=== PATIENT | female | born 1990 | race Caucasian/White ===

== ENCOUNTER 2017-12-05 18:25 | Inpatient (IN) | payer MEDICAID, SELFPAY ==
--- NOTE | 2017-12-05 18:37 | PCM.HP.OB ---
- Problem List (1) Short interval between pregnancies affecting , antepartum Status: Acute (2) History of depression Status: Acute History Date of Admission: 12/05/17 Final OSIEL: 12/05/17 Final OSIEL Source: LMP Gestational age: 40 Weeks and 0 Days History of this : 27 year old at 40w0d by LMP, confirmed by U/S. Presented to office today with contractions every 5minutes and cervical dilation of 4cm. Advised to leave for dinner, walk and return when contractions were more uncomfortable or call back in 2hrs. Patient presented on unit with increased pressure and pain with contractions. Denies leakage of fluid, vaginal bleeding, headache, shortness of breath, or chest pain. Allergies No Known Allergies Allergy (Verified 07/11/16 02:28) Smoking Status: Never smoker Alcohol: None Drug Use: none Number of Fetus(es): 1 Review of Systems Constitutional: Denies: Chills, Fever, Weight Change Cardiovascular: Denies: Chest Pain, Palpitations Respiratory: Denies: Cough, Shortness of breath at rest, Sputum production Physical Exam Vitals: Labs: GBS negative Rubella Immune RPR negative HBsAG negative HIV negative B positive, antibody screen negative GC/CT negative FHT: 125, moderate variability, accels, no decels, Category 1 TOCO: every 5 minutes, lasting 60 seconds, moderate to palpation. General: Alert, Oriented x3, No apparent distress Cardiovascular: Regular rate, Regular Rhythm, No murmurs Lungs: Clear to auscultation, No rhonchi, No wheeze Abdomen: Gravid Extremities:: No edema, Deep tendon reflexes - +2/4 bilateral patellar Presentation: Cephalic Cervix Dilation (cm): 5 Station: -1 Effacement (%): 70 Assessment/Plan Active and Suspected Problems Short interval between pregnancies affecting , antepartum (Acute) History of depression (Acute) A: Active Labor Category 1 FHT P: 1) Admit L&D, routine orders. Insert IV 2) Planning epidural for pain management 3) notified and updated on patient status. Anna Wesley CNM
[2017-12-05] MEDS: Lactated Ringers 1,000 ML 50 ML IV (18:40)
[2017-12-05 19:09] VITALS: BMI 34.9
[2017-12-05 19:16] LABS: Hemoglobin 11.1 g/dl (12.0-15.0); Mean Corp Hgb Conc 31.7 g/gl (32-36); Mean Corpuscular Hgb 24.8 pg (27.0-32.0); Mean Corpuscular Volume 78.1 fL (81-99); Mean Platelet Vol. 9.6 fl (6.2-12.0); Platelet Count 251 K/mm3 (150-450); RBC Distribution Width CV 20.1 % (11.6-14.6); RBC Distribution Width SD 57.8 fl (35.1-43.9); Red Blood Count 4.48 M/mm3 (4.2-5.4); Scan Indicated on CBC? Y/N YES- FLAGS NOTED; White Blood Count 11.5 K/mm3 (4.4-11.0)
[2017-12-05] MEDS: Mag Hydrox/Al Hydrox/Simeth 30 ML UDC PO ×2 (20:30→23:30)
--- NOTE | 2017-12-05 22:28 | PCM.PN.OB ---
Patient Problems: Active and Suspected Problems Short interval between pregnancies affecting , antepartum (Acute) History of depression (Acute) Subjective: Resting in bed with epidural on right side. at bedside. Objective: FHT: 125, moderate variability, accels, no decels, Category 1 TOCO: every 4 min, strong Cervix 8.5cm/90%/+1 asynclitic - Physical Exam Weight: 191 lb 5.78 oz Body Mass Index (BMI) 34.9 Laboratory Tests Past 24 Hrs 12/05/17 12/05/17 18:40 18:40 WBC 11.5 H RBC 4.48 Hgb 11.1 L Hct 35.0 L MCV 78.1 L MCH 24.8 L MCHC 31.7 L RDW 20.1 H RDW Differential 57.8 H Plt Count 251 MPV 9.6 Differential Comment 1+ ANISO Blood Type B POSITIVE Antibody Screen NEGATIVE Medical Necessity - Tobacco Use Smoking Status: Never smoker Assessment/Plan Active and Suspected Problems Short interval between pregnancies affecting , antepartum (Acute) History of depression (Acute) A: Active Labor, progressing Category 1 FHT P: 1) Continue with expectant management 2) Positional changes.
[2017-12-06] MEDS: Oxytocin 30 units/NS 500 ml 30 UNITS/500 ML IV.SOLN 334 UNITS IV (00:10)
[2017-12-06] MEDS: Oxytocin 30 units/NS 500 ml 30 UNITS/500 ML IV.SOLN 167 UNITS IV (00:40)
--- NOTE | 2017-12-06 00:53 | PCM.OB.VAG ---
- Problem List (1) Short interval between pregnancies affecting , antepartum Status: Acute (2) History of depression Status: Acute Vaginal Delivery Maternal Presentation: Active Labor Amniotic Membrane Rupture Type: Artificial Amniotic Fluid Description: Clear Final OSIEL: 12/05/17 Gestational age: 40 Weeks and 1 Days Date of Procedure: 12/06/17 Pre-Operative Diagnosis: Active Labor Post-Operative Diagnosis: Surgery/ Procedure Performed: Spontaneous Vaginal Delivery Type of Anesthesia: Epidural Description of Procedure: Progressed to complete with urge to push. of viable male infant over 1st degree perineal laceration. APGARS 9,9. Infant delivered without complications and placed on maternal abdomen. Spontaneous cry, mouth and nares suctioned for secretions. Pitocin started IVPB for active 3rd stage management. Placenta delivered with maternal effort, 3 vessel cord, intact via henny. Perineum inspected and revealed 1st degree perineal laceration. Repaired with 3.0 vicryl under epidural analgesia. Fundus firm, hemostasis achieved. Planning to breastfeed. Mom and baby stable. Family bonding well. notified. Presentation: Vertex Placental Delivery Description: Spontaneous Placenta Disposition: [facility] Cord Vessel Description: 3 Vessels Cord Entanglement: None Infant A gender: Male (1 minute): 9 (5 minute): 9 Episiotomy Description: None Laceration: Perineal Extension/lac, 1st degree Medications given after delivery: IV Pitocin
--- NOTE | 2017-12-06 00:59 | DCINST_ITS ---
Discharge Diet: No Restrictions Discharge Activity: Return to Normal Activity, May not drive while taking narcotic pain medications., May Shower May resume sexual activity in: 4-6 weeks Weight Bearing Status: Weight bearing as tolerated Call your doctor if your incision/area has: Continuous Slow Oozing, Sudden Increased Bleeding, Increased Pain/ Swelling, Increased Redness, Foul Smelling Discharge Call your doctor if you observe: Fever of 101 or Higher, Coldness, Increased Pain, Numbness or Tingling, Change in Color, Inability to urinate, Inability to have a bowel movement, Using more than one pad per hour, Shortness of breath, Dizziness, Fainting spells, Swelling in the ankles, Chest pain, Increased palpitations (irregular heartbeat), Calf discomfort, Uncontrolled pain Additional Instructions: If you experience any of the following, contact your healthcare provider. * Bleeding that soaks a pad every hour for 2 hours * Fever 100.4 or higher * Unrelieved incision or abdominal pain * Swelling, redness, discharge or bleeding from your incision or episiotomy site * Your incision begins to separate * Problems urinating (including inability to urinate or burning while urinating) . * Visual changes * Severe headache * Flu-like symptoms * Pain or redness in one of both of your breasts * Pain, warmth, tenderness or swelling in your legs, especially the calf area * Frequent nausea and vomiting * Symptoms of depression or anxiety If you experience any of the following, call 911 or go to the nearest Emergency Room. * Chest pain * Problems breathing * Seizure activity * Partial or complete paralysis of a body part, slurred speech, weakness or drooping of the face, or a sudden inability to walk or hold your balance Allergies/Adverse Reactions: Allergies No Known Allergies Allergy (Verified 07/11/16 02:28) Medications to take at Discharge Pnv No.122/Iron/Folic Acid [ Multi Tablet] 1 each PO DAILY 12/31/15 Ranitidine [Zantac] 150 mg PO BID 06/26/16 Please Follow Up With: Anna Wesley CNM When: Call to make an appointment with your doctor in 6 weeks. If you had elevated Blood Pressure or 4th degree laceration you will need to be seen in 2 weeks. Primary Care Physician: Care Physician,No Primary [Primary Care Provider] -
[2017-12-06] MEDS: Acetaminophen 500 MG Tablet 1000 MG PO ×2 (02:54→14:12)
[2017-12-06 04:20] VITALS: BP 107/60; PULSE 80; RESP 16; TEMP 36.7; O2SAT 98
--- NOTE | 2017-12-06 08:15 | NURSING ---
Steady on feet. Tolerating oral intake. Void x1 300ml.
[2017-12-06] MEDS: Naproxen 250 MG Tablet PO ×2 (08:35→19:36)
[2017-12-06 13:53] VITALS: BP 127/58; PULSE 80; RESP 17; TEMP 36.8; O2SAT 99
[2017-12-06 16:00] VITALS: PULSE 78; RESP 16; TEMP 36.8; O2SAT 100
[2017-12-06 19:29] VITALS: BP 128/63; PULSE 84; RESP 16; TEMP 36.8; O2SAT 98
[2017-12-07 02:40] VITALS: BP 115/56; PULSE 90; RESP 16; TEMP 36.2; O2SAT 96
--- NOTE | 2017-12-07 07:07 | PN.OBGYN_ITS ---
Patient Problems: Active and Suspected Problems Short interval between pregnancies affecting , antepartum (Acute) History of depression (Acute) Subjective: pt seen at bedside, doing well. pt reports good pain control. lochia mild. - Physical Exam General: Alert, Oriented x3 Abdomen: Soft, Non Tender, Non-Distended, - - fundus firm Extremities: No Calf Tenderness Vital Signs Temp Pulse Resp BP Pulse Ox 97.2 F L 90 16 115/56 L 96 12/07/17 02:40 12/07/17 02:40 12/07/17 02:40 12/07/17 02:40 12/07/17 02:40 Oxygen Delivery Method Room Air Weight: 86.8 kg Body Mass Index (BMI) 34.9 Intake and Output for Last 24 Hours 12/05/17 12/06/17 12/07/17 23:59 23:59 23:59 Intake Total 1999 / 1999 Output Total 400 / 400 1800 / 1800 Balance 1600 / 1600 -1800 / -1800 Medical Necessity - Tobacco Use Smoking Status: Never smoker Assessment/Plan Active and Suspected Problems Short interval between pregnancies affecting , antepartum (Acute) History of depression (Acute) PPD#1, doing well routine care pain mgmt [facility]
[2017-12-07 10:00] VITALS: BP 114/75; PULSE 86; RESP 16; TEMP 36.6
--- NOTE | 2017-12-07 15:01 | NURSING ---
1430 Discharged to home in wheelchair to car with . States she wants to go home today and feels comfortable caring for herself and her baby.
== END 2017-12-07 14:30 | disposition home or self-care (01) | DRG 373 ==
LOC: WPOUT 18:28 → WP 18:28
PROVIDERS: Admitting Provider Obstetrics & Gynecology; Visit Provider Obstetrics & Gynecology
DX: O70.0 First degree perineal laceration during delivery (principal); Z37.0 Single live birth; Z3A.40 40 weeks gestation of pregnancy
CPT/HCPCS: 59025; 59050; 85027; 86850; 86900; 99218; J7120; G0378

== ENCOUNTER 2019-12-11 00:35 | Outpatient (CLI) | payer MEDICAID, SELFPAY ==
[2019-12-11 00:53] VITALS: BMI 34.7
[2019-12-11 01:00] VITALS: BP 117/60; PULSE 75; PULSE 91; TEMP 36.6; O2SAT 96; O2SAT 98
[2019-12-11 03:04] VITALS: BP 111/66; PULSE 67; O2SAT 98
--- NOTE | 2019-12-11 10:57 | OB.TRI.PN ---
Progress Notes Date of Service: 12/11/19 Progress Note: 29 year old female. at 39w4d with complaint of contractions. Mild discomfort but presented due to contractions closer together. Denied any vaginal bleeding, leakage of fluid, or other complaints. O: FHR 125, moderate variability, accels, Category 1 Reactive TOCO: contractions 2-5 minutes apart, mild Cervical 3.5 cm to 4 cm after 2 hr. Limited cervical change and mild contractions A: False Labor P: 1) Patient ok to go home at this time. Limited cervical change and comfortable. Reviewed possible early labor vs. false labor. Will call if contraction intensity increases 2) D/C home
== END 2019-12-11 03:30 | disposition home or self-care (01) ==
LOC: WPOUT 00:47 → WP 00:48
PROVIDERS: Referring Provider Advanced Practice Midwife; Visit Provider Advanced Practice Midwife
DX: O47.1 False labor at or after 37 completed weeks of gestation (principal); Z3A.39 39 weeks gestation of pregnancy
CPT/HCPCS: 59025; 59050; 99218; G0378

== ENCOUNTER 2019-12-11 12:10 | Inpatient (IN) | payer MEDICAID, SELFPAY ==
[2019-12-11] VITALS (33 sets, daily range): BP systolic 72–141; BP diastolic 45–72; PULSE 58–104; TEMP 35.9–36.5; O2SAT 94–100; BMI 34.7; BMI 34.0
--- NOTE | 2019-12-11 12:17 | PCM.PN.OB ---
Subjective: 29 year old at 39w4d presents for contractions that increased over last couple hours and increased pain. Contractions every 2minutes. No leakage of fluid, vaginal bleeding. Baby is moving good. Had increased mucous and thinks she lost a mucous plug. course complicated by depression and iron deficiency anemia. Patient denies any cough, fever, or shortness of breath. Denies any contacts with COVID 19 positive individuals for her self or . - Physical Exam Vitals/I&O's: Vital Signs Temp Pulse BP Pulse Ox 97.4 F L 76 110/65 100 12/11/19 12:13 12/11/19 12:13 12/11/19 12:13 12/11/19 12:13 Weight: 185 lb 12.8 oz Body Mass Index (BMI) 34.0 General: Alert, Oriented x3, Cooperative HEENT: Atraumatic, Normocephalic Neck: Trachea Midline Lungs: Clear to auscultation, Normal air movement, No rhonchi, No wheeze Cardiovascular: Regular rate, Regular Rhythm, No murmurs Abdomen: Gravid Extremities: No edema Neurological: Deep Tendon Reflexes 2+/4 and Symmetrical Psych/Mental Status: Normal Affect, Appropriate Medical Necessity - Tobacco Use Smoking Status: Never smoker Assessment/Plan All Active Problems Short interval between pregnancies affecting , antepartum (Acute) History of depression (Acute) A: 29 year old at 39w4d in active labor Category 1 FHT P: 1)
--- NOTE | 2019-12-11 12:28 | PCM.HP.OB ---
- Problem List (1) Active labor at term Status: Acute (2) Depression affecting Status: Acute History Date of Admission: 12/05/17 Final OSIEL: 12/14/19 Final OSIEL Source: LMP Gestational age: 39 Weeks and 4 Days History of this : 29 year old at 39w4d presents for contractions that increased over last couple hours and increased pain. Contractions every 2minutes. No leakage of fluid, vaginal bleeding. Baby is moving good. Had increased mucous and thinks she lost a mucous plug. course complicated by depression and iron deficiency anemia. Patient denies any cough, fever, or shortness of breath. Denies any contacts with COVID 19 positive individuals for her self or . Allergies No Known Allergies Allergy (Verified 12/11/19 12:15) Home Medications: Home Medications Ranitidine [Zantac] 150 mg PO BID 06/26/16 Ferrous Sulfate [Iron] 325 mg PO DAILY 12/11/19 Sertraline HCl [Zoloft] 25 mg PO DAILY 12/11/19 Smoking Status: Never smoker Alcohol: None Number of Fetus(es): 1 NST - FHR Rate Baby A Baseline: 130 Variability:: Moderate Accelerations:: 15 x 15 Decelerations:: None NST Reactive:: Yes FHR Category:: Category I Uterine Activity:: Every 2- 5 minutes, moderate to strong with palpation History Past Pregnancies: Past Pregnancies Delivery Date Name GA/ Weeks Outcome Route Wt Infant Sex Labor Length Anesthesia Delivery Location Provider FOB Labs: GBS negative 1hr GCT normal RPR non reactive Rubella immune HBsAG negative HIV negative B positive Hep C negative GC/CT negative Urine tox screen negative Review of Systems Constitutional: Denies: Chills, Fever, Weight Change, Fatigue Eyes: Denies: Blurred vision HEENT: Denies: Head Aches, Sinus Congestion, Sinus Drainage Cardiovascular: Denies: Chest Pain, Palpitations Respiratory: Denies: Cough, Shortness of breath at rest, Sputum production Gastrointestinal: Denies: Nausea, Vomiting Genitourinary: Denies: Dysuria Musculoskeletal: Denies: Joint Pain, Joint Tenderness Skin: Denies: Rash, Wounds Neurological: Denies: Numbness, Tingling, Focal weakness Psychiatric: Denies: Anxiety, Depression - Taking zoloft during for depression, Homicidal Ideations, Suicidal Ideations Hematologic/ Lymphatic: Denies: Easy Bruising, Easy Bleeding Physical Exam Vitals: Vital Signs Temp Pulse BP Pulse Ox 97.4 F L 76 110/65 100 12/11/19 12:13 12/11/19 12:13 12/11/19 12:13 12/11/19 12:13 General: Alert, Oriented x3, Cooperative HEENT: Atraumatic, Normocephalic Cardiovascular: Regular rate, Regular Rhythm, No murmurs Lungs: Clear to auscultation, Normal air movement, No rhonchi, No wheeze Abdomen: Gravid Extremities:: No edema Neurological: Deep Tendon Reflexes 2+/4 and Symmetrical. Negative for: Clonus [employer]: Normal external genitalia Estimated gestational size: Appropriate for gestational size Presentation: Cephalic Cervix Dilation (cm): 5.5 - IBOW Station: -2 Effacement (%): 70 Assessment/Plan All Active Problems Short interval between pregnancies affecting , antepartum (Acute) History of depression (Acute) Active labor at term (Acute) Depression affecting (Acute) This is a 29 year-old, G [3], P [2002], at 39w4d gestational age in Active Labor A: Active Labor Category 1 FHT P: 1) Admit to labor and delivery 2) Routine labs. GBS negative 3) IV fluids per protocol 4) Epidural for pain relief per patient request 5) Patient denies any cough, fever, or shortness of breath. Denies any contacts with COVID 19 positive individuals for her self or . 6) Declines LARC. Planning PPTL 7) notified of admission to labor and delivery and collaborative physician.
[2019-12-11] MEDS: Lactated Ringers 1,000 ML 50 ML IV (12:30)
[2019-12-11] MEDS: Lactated Ringers 500 ML 999 ML IV ×2 (12:35→13:36)
[2019-12-11 12:45] LABS: Absolute Lymphocyte Count 1.14 X10^3/uL (0.83-4.51); Absolute Neutrophil Count 7.9 X10^3/uL (2.0-7.7); Basophil# 0.03 X10^3/uL; Basophil% 0.3 % (0-1); Eosinophil# 0.08 X10^3/uL; Eosinophils% 0.8 % (0-5); Hemoglobin 10.4 g/dL (12.0-15.0); Lymphocyte # 1.14 X10^3/ul (4.0); Lymphocyte % 11.6 % (19-41); Mean Corp Hgb Conc 30.6 g/dL (32-36); Mean Corpuscular Hgb 22.9 pg (27.0-32.0); Mean Corpuscular Volume 74.9 fL (81-99); Mean Platelet Vol. 9.9 fl (6.2-12.0); Monocyte# 0.59 X10^3/uL; NRBC Flagged by Analyzer 0.2 % (0-5); Neutrophil # 7.94 X10^3/uL (2.7-7.7); Neutrophil % 80.9 % (47-70); Platelet Count 253 K/mm3 (150-450); RBC Distribution Width CV 17.9 % (11.6-14.6); RBC Distribution Width SD 47.6 fl (35.1-43.9); Red Blood Count 4.54 M/mm3 (4.2-5.4); White Blood Count 9.8 K/mm3 (4.4-11.0)
--- NOTE | 2019-12-11 15:31 | PCM.PN.BLA ---
Progress Note Patient seen at bedside. Comfortable with epidural anesthesia. Denies any needs at this time. CE- 7/80/-1 Cervix thin and stretchy. Category 1 tracing. Continue present management and anticipate . Dr. Adame updated on patient status. STROKE Vital Signs/Narrative: Vital Signs Temp Pulse BP Pulse Ox 12/11/19 14:36 72 94/51 L 12/11/19 14:32 70 95/51 L 12/11/19 14:24 75 93/51 L 12/11/19 14:17 88 77/45 L 12/11/19 14:12 76 80/46 L 12/11/19 14:04 76 72/45 L 12/11/19 13:58 100 97/56 L 12/11/19 13:53 88 97/56 L 99 12/11/19 13:48 87 109/64 98 12/11/19 13:43 104 H 100/56 L 98 12/11/19 13:40 95 94 12/11/19 13:38 86 100 12/11/19 13:35 83 100/55 L 12/11/19 13:33 70 105/52 L 99 12/11/19 13:31 78 94 12/11/19 13:28 83 118/66 94 12/11/19 13:24 85 130/58 H 12/11/19 13:23 86 100 12/11/19 13:17 86 100 12/11/19 13:06 97.7 F L 100 141/72 H 100 12/11/19 12:13 97.4 F L 76 110/65 100
[2019-12-11] MEDS: Oxytocin 30 units/NS 500 ml 30 UNITS/500 ML IV.SOLN 334 UNITS IV (17:06)
--- NOTE | 2019-12-11 17:26 | PCM.OPRPT ---
Problem List (1) (spontaneous vaginal delivery) Status: Acute (2) Second degree perineal laceration Status: Acute Report of Operation Date of Procedure: 12/11/19 Pre-Operative Diagnosis: Term Gestation, Spontaneous labor Post-Operative Diagnosis: Same, live female infant Vaginal Delivery Maternal Presentation: Active Labor Active labor Amniotic Membrane Rupture Type: Artificial Amniotic Fluid Description: Clear Final OSIEL: 12/14/19 Final OSIEL Source: US <20 weeks Gestational age: 39 Weeks and 4 Days Date of Procedure: 12/11/19 Pre-Operative Diagnosis: Term Labor Post-Operative Diagnosis: Same, live female infant Surgery/ Procedure Performed: Spontaneous Vaginal Delivery Type of Anesthesia: Epidural Description of Procedure: of live female born without complication over intact perineum. Head delivered without difficulty followed by delivery of posterior shoulder with gentle downward traction followed by the rest of infant's body. The infant was placed on mother's chest for immediate skin to skin. Infant vigorous and crying. Delayed cord clamp completed for >60 seconds. Cord cut by FOB. Placenta delivered spontaneously and intact. Second-degree laceration was repaired with 2-0 vicryl suture. Hemostasis present. Patient bonding with infant. Presentation: CURTIS Placental Delivery Description: Spontaneous Placenta Disposition: [facility] Cord Vessel Description: 3 Vessels Cord Entanglement: None Estimated Blood Loss: 300 A gender: Female (1 minute): 8 (5 minute): 9 Episiotomy Description: None Laceration: 2nd degree Medications given after delivery: IV Pitocin
[2019-12-12] VITALS: BP 104/52; PULSE 78; RESP 18; TEMP 36.9
[2019-12-12 04:00] VITALS: BP 86/41; PULSE 65; RESP 16; TEMP 36.6
[2019-12-12 08:26] VITALS: BP 106/53; PULSE 68; RESP 16; TEMP 36.6
--- NOTE | 2019-12-12 12:39 | PCM.PN.OB ---
Patient Problems: Active and Suspected Problems Active labor at term (Acute) Depression affecting (Acute) (spontaneous vaginal delivery) (Acute) Second degree perineal laceration (Acute) Subjective: Doing well per patient and nursing staff. Ambulating and taking PO without difficulty. Voiding and passing flatus. Lochia normal. No complaints and wanting to go home today. - Physical Exam Vitals/I&O's: Vital Signs Temp Pulse Resp BP Pulse Ox 97.8 F 68 16 106/53 L 97 12/12/19 08:26 12/12/19 08:26 12/12/19 08:26 12/12/19 08:26 12/11/19 19:15 Weight: 185 lb 12.8 oz Body Mass Index (BMI) 34.0 Intake and Output for Last 24 Hours 12/10/19 12/11/19 12/12/19 23:59 23:59 23:59 Intake Total 2100.34 / 2100.34 Output Total 210 / 1010 800 / 800 Balance 1890.34 / 1090.34 -800 / -800 General: Alert, Oriented x3, Cooperative HEENT: Atraumatic, Normocephalic Neck: Trachea Midline Lungs: Clear to auscultation, Normal air movement, No rhonchi, No wheeze Cardiovascular: Regular rate, Regular Rhythm, No murmurs Abdomen: Bowel Sounds Present - fundus firm 3 below U Extremities: No edema Psych/Mental Status: Normal Affect, Appropriate Laboratory Results 12/11/19 12:35: WBC 9.8, RBC 4.54, Hgb 10.4 L, Hct 34.0 L, MCV 74.9 L, MCH 22.9 L, MCHC 30.6 L, RDW Std Deviation 47.6 H, RDW Coeff of Selina 17.9 H, Plt Count 253, MPV 9.9, Immature Gran % (Auto) 0.400, Neut % (Auto) 80.9 H, Lymph % (Auto) 11.6 L, [place] % (Auto) 6.0, Eos % (Auto) 0.8, Baso % (Auto) 0.3, Absolute Neuts (auto) 7.9 H, Absolute Lymphs (auto) 1.14, Nucleated RBC % 0.2 12/11/19 12:35: Blood Type B POSITIVE, Antibody Screen NEGATIVE Current Medications Acetaminophen (Tylenol) 1,000 mg PO Q8H PRN PRN PRN Reason: Pain Score 1-3/10 Bisacodyl (Dulcolax) 10 mg RECTAL UD PRN PRN Reason: If no BM Dibucaine (Dibucaine) 1 applic TOPICAL TID PRN PRN; Protocol PRN Reason: Discomfort Hydrocortisone (Hytone) 1 applic TOPICAL TID PRN PRN; Protocol PRN Reason: Discomfort Methylergonovine Maleate (Methergine) 0.2 mg IM X1 PRN PRN Reason: Excess bleeding/uterine atony Naproxen (Naprosyn) 500 mg PO Q8H PRN PRN PRN Reason: Pain Score 1-3/10 Ondansetron HCl (Zofran) 4 mg IV Q4H PRN PRN PRN Reason: Nausea Senna/Docusate Sodium (Senokot-S, Silvia-Colace) 1 - 2 tablet PO DAILY PRN PRN PRN Reason: Constipation Simethicone (Mylicon) 80 mg PO PCHS PRN PRN Reason: Indigestion/Stomach pain Medical Necessity - Tobacco Use Smoking Status: Never smoker Assessment/Plan All Active Problems Short interval between pregnancies affecting , antepartum (Acute) History of depression (Acute) Active labor at term (Acute) Depression affecting (Acute) (spontaneous vaginal delivery) (Acute) Second degree perineal laceration (Acute) A:PPD #1 P: 1) Routine instructions 2) Follow up in 2 weeks for virtual and 6 weeks for visit.
--- NOTE | 2019-12-12 12:43 | DCINST_ITS ---
Discharge Diet: No Restrictions Discharge Activity: Return to Normal Activity, May not drive while taking narcotic pain medications., May Shower May resume sexual activity in: 4-6 weeks Additional Activity Instructions:: Nothing in the vagina for 4-6 weeks. You may return to work/school in 6 weeks. Call your doctor if your incision/area has: Continuous Slow Oozing, Sudden Increased Bleeding, Increased Pain/ Swelling, Increased Redness, Foul Smelling Discharge Call your doctor if you observe: Fever of 101 or Higher, Inability to urinate, Inability to have a bowel movement, Using more than one pad per hour, Shortness of breath, Chest pain, Increased palpitations (irregular heartbeat), Calf discomfort, Uncontrolled pain Additional Instructions: If you experience any of the following, contact your healthcare provider. * Bleeding that soaks a pad every hour for 2 hours * Fever 100.4 or higher * Unrelieved incision or abdominal pain * Swelling, redness, discharge or bleeding from your incision or episiotomy site * Your incision begins to separate * Problems urinating (including inability to urinate or burning while urinating). * Visual changes * Severe headache * Flu-like symptoms * Pain or redness in one of both of your breasts * Pain, warmth, tenderness or swelling in your legs, especially the calf area * Frequent nausea and vomiting * Symptoms of depression or anxiety If you experience any of the following, call 911 or go to the nearest Emergency Room. * Chest pain * Problems breathing * Seizure activity * Partial or complete paralysis of a body part, slurred speech, weakness or drooping of the face, or a sudden inability to walk or hold your balance Allergies/Adverse Reactions: Allergies No Known Allergies Allergy (Verified 12/11/19 12:15) Medications to take at Discharge Sertraline HCl [Zoloft] 25 mg PO DAILY 12/11/19 Please Follow Up With: Leigh Moeller CNM When: Call to make an appointment with your doctor in 2 weeks for virtual visit and 6 weeks. Primary Care Physician: Care Physician,No Primary [Primary Care Provider] - Test Results: Test results from this visit will be discussed in further detail at your follow- up appointment, if applicable.
[2019-12-12 14:35] VITALS: BP 116/53; PULSE 60; RESP 18; TEMP 36.4
[2019-12-12] MEDS: Naproxen 250 MG Tablet 500 MG PO (16:51)
[2019-12-12 19:10] VITALS: BP 118/71; PULSE 90; RESP 18; TEMP 36.5
--- NOTE | 2019-12-16 17:19 | CASEMGMT ---
Social Work Labor and Delivery Unit Received phone call from Anna Kaur RN about calling patient/mother of baby (MOB) at home for follow up social work consult. MOB was discharged over the weekend but consult was placed for maternal history of depression and on medication of Zoloft. Chart reviewed, called number listed in the demographic data but this was an incorrect number. Searched record and found alternate number on certificate worksheet as [phone]. Called MOB. Introduced to self and role. Confirmed demographic data. This automobile and property underwriter updated MOB's demographic data (address, phone, and emergency contact). MOB reports she has been in contact with her counselor at [facility] in [place], who has started a referral to a psychiatrist for medication management. MOB reports the Zoloft, that was prescribed by OB provider, is working well and does not want to run out. MOB reports plan to call OB office to see about a refill until can get into psychiatrist. MOB reports to be doing okay at home, that is supportive and off of work to help out for a bit. MOB denies any other needs at this time. MOB declined public health social worker mailing further resource information out in the mail as has resources in place that are helpful. Noted that baby is Tea Mauricio (born 12.11.2017) an other children at home are Mirta Mauricio (born 07.11.2016) and Julien Mauricio (born 11.26.2017). Plan: MOB is at home and reports to be managing well, to have support, and has already been in contact with outpatient mental health providers. No other services requested or indicated. -TESHA Maharaj, LEG ASSEMBLER
== END 2019-12-12 19:10 | disposition home or self-care (01) | DRG 560 ==
LOC: WPOUT 12:10 → WP 12:11
PROVIDERS: Admitting Provider Advanced Practice Midwife; Referring Provider Advanced Practice Midwife; Visit Provider Advanced Practice Midwife
DX: O99.02 Anemia complicating childbirth (principal); F32.9 Major depressive disorder, single episode, unspecified; O99.344 Other mental disorders complicating childbirth; D50.9 Iron deficiency anemia, unspecified; Z3A.39 39 weeks gestation of pregnancy; Z37.0 Single live birth; O70.1 Second degree perineal laceration during delivery; O47.1 False labor at or after 37 completed weeks of gestation
CPT/HCPCS: 59025; 59050; 85025; 86850; 86900; 86901; 99218; J7120; G0378

== ENCOUNTER 2020-03-02 10:31 | Day surgery (SDC) | payer MEDICAID, SELFPAY ==
[2019-12-11 12:04] VITALS: BMI 34.0
--- NOTE | 2020-02-25 15:31 | PCM.HP.BLA ---
History and Physical Date of Admission: 03/02/20 Hali Adame Physician Specialty: CURING OVEN TENDER H&P Signed Encounter Date: 02/22/2020 Expand All Collapse All Hide copied text Virgil for details Zita Mauricio is a 29 year old female who presents for sterilization consultation. Patient would like to proceed with a laparoscopic salpingectomy. Patient has a history of 3 vaginal deliveries. Patient is not interested in any long-acting reversible contraceptive options at this time. She has previously signed her title 19 form. ? PAST MEDICAL HISTORY PAST MEDICAL HISTORY Diagnosis Date ? anxiety ? ? Maternal iron deficiency anemia affecting , antepartum, third trimester 09/23/2017 ? NEGATIVE MEDICAL HISTORY ? ? depression ? PAST SURGICAL HISTORY PAST SURGICAL HISTORY Procedure Laterality Date ? NONE ? ? FAMILY HISTORY FAMILY HISTORY Problem Relation Age of Onset ? Alcohol/Drug Father ? ? ETOH ? Heart Father ? ? Hypertension Father ? ? Arthritis Maternal Grandmother ? ? Diabetes Maternal Grandmother ? ? Alcohol/Drug Maternal Grandfather ? ? ETOH ? Cancer Paternal Grandmother ? ? ? ovarian ? Diabetes Paternal Grandfather ? ? Heart Paternal Grandfather ? ? Alcohol/Drug Brother ? ? DRUGS ? No Known Problems Son ? ? No Known Problems Daughter ? SOCIAL HISTORY Social History ? Tobacco Use ? Smoking status: Never Smoker ? Smokeless tobacco: Never Used Substance Use Topics ? Alcohol use: No ? Drug use: No CURRENT MEDICATIONS Current Outpatient Medications Medication Sig ? sertraline (ZOLOFT) 50 mg tablet Take 1 tablet by mouth once daily. ? iron,carb/vit C/vit B12/folic (IRON 100 PLUS ORAL) Take by mouth. ? simethicone, chewable (MYLICON) 80 mg chewable tablet Take 1 tablet by mouth every 6 hours as needed. ? ibuprofen (MOTRIN) 600 mg tablet Take 1 tablet by mouth every 6 hours as needed. FOR PAIN. ? famotidine (PEPCID) 20 mg tablet Take 1 tablet by mouth twice daily. (Patient not taking: Reported on 01/25/2020 ) ? No current facility-administered medications for this visit. Allergies As of Date: 02/22/2020 (No Known Allergies) Fully Assessed 02/22/2020 ? REVIEW OF SYSTEMS Abdomen: no pain Bladder: no dysuria. Expanded ROS: GENERAL: Negative for fever Allergies and current medication updated:Yes ? EXAM: BP 102/60 Ht 5' 2 (1.58m) Wt 171 lb (77.6kg) LMP 02/21/2020 BMI 31.27 kg/(m^2). GENERAL: pleasant, female in no apparent distress HEENT: Normocephalic, atraumatic, mucus membranes moist and no lesions NECK: full range of motion DERMATOLOGY: Normal, without lesions, non-icteric and non-hirsute NEURO: alert and oriented x3,exam grossly non-focal EXTREMITIES: normal ? ASSESSMENT AND PLAN: Encounter Diagnosis ? ? ICD-10-CM ? 1. Consultation for female sterilization Z30.09 ? 2. Pt has been counseled on risks/benefits and alternatives of surgery including but not limited to anesthesia, bleeding, infection, injury to pelvic structures including bowel, bladder, ureters and vessels. Pt wishes to proceed with surgery at this time. ? 3. Risk of regret reviewed. ? Hali Meade MD ? ? ?
--- NOTE | 2020-02-25 15:33 | PCM.HP.BLA ---
Procedure Criteria Procedure Type: Elective Procedure Essential: No COVID Risk Discussion: The surgeon/proceduralist and patient have discussed in detail the risk of exposure to and/or potential harm posed by the COVID-19 virus with having a surgery/procedure at this time versus the risk of delaying the surgery/procedure. It is not possible to know either the risk of delaying the surgery or procedure or chance of getting an infection with perfect accuracy, but a joint decision was made between the patient and the surgeon/proceduralist to proceed at this time with the scheduled surgery/procedure as indicated on the consent form.
[2020-03-02] VITALS (7 sets, daily range): BP systolic 101–121; BP diastolic 50–74; PULSE 45–76; RESP 15–16; TEMP 36.3–36.8; O2SAT 95–100; BMI 31.0
[2020-03-02 11:04] LABS: Internal QC Validated? YES +Cl - CLEAR BKGD; Pregnancy, Urine Negative Negative
[2020-03-02] MEDS: Lactated Ringers 1,000 ML 100 ML IV (11:07)
[2020-03-02 11:16] LABS: Hematocrit 38.3 % (37-47); Hemoglobin 11.5 g/dL (12.0-15.0); Mean Corpuscular Hgb 24.1 pg (27.0-32.0); Mean Corpuscular Volume 80.1 fL (81-99); Mean Platelet Vol. 10.1 fl (6.2-12.0); Platelet Count 338 K/mm3 (150-450); RBC Distribution Width CV 17.8 % (11.6-14.6); RBC Distribution Width SD 51.9 fl (35.1-43.9); Red Blood Count 4.78 M/mm3 (4.2-5.4); White Blood Count 5.6 K/mm3 (4.4-11.0)
--- NOTE | 2020-03-02 11:45 | FALS_PTH ---
PATIENT: JULISSA ESCOBEDO LOC: [facility] [place] U#:[id number] AGE/SX: 29/F ROOM: RE03/02/[address]: DENISA: 1990 BED: DIS: 03/02/2020 SPEC #: [id number] RECD: 03/02/20 16:03 STATUS: RONALD MORGAN #: [id number] BRYSON: 03/02/20 11:[address]: Hali Meade DEPT: SURGICAL PATHOLOGY RECD BY: Nathaniel Parker ENTERED: 03/03/20 08:04 SP TYPE: FALL TUBES OTHR DR: Kristyn Primary Care Phys Tissues: Fallopian tube Procedures: Surgery Specimen Level II HEADER OPERATION: Laparoscopic salpingectomy PRE-OP DIAGNOSIS: Sterilization TISSUE SUBMITTED: Bilateral fallopian tubes MICROSCOPIC DIAGNOSIS Right and left fallopian tubes, bilateral salpingectomies: Two complete segments of fallopian tubes with no pathologic change. AM:jennifer 03/06/20 MICROSCOPIC DESCRIPTION Slides are reviewed. GROSS DESCRIPTION Received in fixative is one container labeled with the patient's name and designated bilateral fallopian tubes. The specimen consists of bilateral fallopian tubes including fimbrial ends. One of the fallopian tubes measures 5.5 cm in length and 0.6 cm in diameter. The second fallopian tube is received in two pieces. The proximal portion measures 5.5 cm in length and 0.6 cm in diameter. The distal portion including the fimbrial end measures 1.5 cm in length and 0.6 cm in diameter. The fallopian tubes are not identified as right or left. Sections reveal unremarkable cut surfaces. Per Diem Physical Therapist Assistant sections are submitted in two cassettes as follows: 1 - intact fallopian tube, 2 - fallopian tube received in two pieces. / SJ:jennifer 03/03/20 TC:4 [facility]: [id number] x2
--- NOTE | 2020-03-02 12:54 | PCM.OPRPT ---
Report of Operation Date of Procedure: 03/02/20 Pre-Operative Diagnosis: desires sterilization Post-Operative Diagnosis: same Surgery/Procedure Performed:: laparoscopic Bilateral salpingectomy Description of Surgical Findings:: normal tubes and ovaries bilaterally office support assistant: none Type of Anesthesia:: General Special Medications: 0.5% marcaine Specimen's removed: bilateral fallopian tubes Drains: none Estimated Blood Loss (mL): <5cc Fluids Replaced: 1400 Description of Procedure: After informed consent was obtained patient was taken to the operating room she was placed in supine position she was given anesthesia. She was then placed in the [facility]ru and she was prepped and draped in normal sterile fashion. Bladder was drained prior to the start of procedure 300cc. At this time attention was turned to the vaginal portion where weighted speculum placed at posterior fornix vagina single-tooth tenaculum was used to gently grasp the internal the cervix. uterus was gently sounded to approximately 9 cm. Uterine manipulator was placed without difficulty. Legs then placed in parallel with the abdomen the tenaculum and the weighted speculum were removed. 2 towel clamps were placed at level of umbilicus. Marcaine was injected infraumbilical and a small incision was made. The 5 mm trocar was placed under direct visualization. CO2 gas was used to insufflate the intra-abdominal cavity. Upon inspection no gross abnormalities appreciated- the uterus tubes and ovaries appeared to be normal. At this time then the LLQ and RLQ ports were placed First Marcaine was injected and small incision was made a knife and the 5 mm trocars were placed. At this time then tubes were traced back to the fimbriated ends. Ligasure was used to coagulate and ligate along mesosalpinx bilaterally until tubes removed completely. Good hemostasis was appreciated. At this time procedure was deemed complete successful. The gas was desufflated on from the intra-abdominal cavity. The trochars were removed. Skin was closed using 4-0 Monocryl in a subcutaneous fashion. Dermabond glue was placed. Instrument lap and needle counts were correct ?2. The uterine manipulator was removed. Vaginal sweep was performed it was negative. There were no complications anticipated normal postoperative course for this patient. Grafts/Implants Used: none - Complications none - Admit VTE Documentation VTE Present on Admission: Yes VTE Mechan Device Prophylaxis: SCD's VTE Pharm Prophylaxis ordered?: No
--- NOTE | 2020-03-02 12:57 | DCINST_ITS ---
Discharge Diet: No Restrictions, - - Increase fluid intake for 48 hours. Discharge Activity: Return to Normal Activity, May Drive - when you are no longer taking narcotic pain medications., May Shower, May Take a Tub Bath - in 7 days., - - Ambulate often the next week after surgery. Additional Activity Instructions:: Nothing in the vagina for the next 5 days. Call your doctor if your incision/area has: Continuous Slow Oozing, Sudden Increased Bleeding, Increased Pain/ Swelling, Increased Redness, Foul Smelling Discharge, Swelling at the incision site Call your doctor if you observe: Fever of 101 or Higher Cleanse incision/area with: - - you have skin glue over incision sites- let soap and water run over incision sites and dab dry. do not pick off glue. Allergies/Adverse Reactions: Allergies No Known Allergies Allergy (Verified 03/02/20 10:40) Medications to take at Discharge RX: Sertraline HCl [Zoloft] 25 mg PO QHS 12/11/19 Primary Care Physician: Care Physician,No Primary [Primary Care Provider] - Test Results: Test results from this visit will be discussed in further detail at your follow- up appointment, if applicable. Please Follow Up With: Hali Meade MD When: as scheduled in 2 weeks
[2020-03-02] MEDS: Bupivacaine Mpf 0.5% 30 ML VIAL (13:19)
== END 2020-03-02 15:29 | disposition home or self-care (01) ==
LOC: SDC 10:33 → AC 10:34
PROVIDERS: Anesthesiology; Referring Provider Obstetrics & Gynecology
PROC: (CPT 58661; principal; 2020-03-02 11:30)
DX: Z30.2 Encounter for sterilization (principal); Z11.59 Encounter for screening for other viral diseases; F41.9 Anxiety disorder, unspecified; Z79.899 Other long term (current) drug therapy; F32.9 Major depressive disorder, single episode, unspecified
CPT/HCPCS: 00840; 58661; 81025; 85027; 87635; 88302; G2023; J7120; J2405; U0003